=== PATIENT | female | born 1960 | race Caucasian/White ===

== ENCOUNTER → 2020-11-08 11:28 | Outpatient (REF) | payer BC, SELFPAY | LOC: ANHLAB 11:28 | PROVIDERS: PCP Internal Medicine; Visit Provider Nurse Practitioner | DX: L90.5 Scar conditions and fibrosis of skin (principal) | CPT/HCPCS: 88305 ==

== ENCOUNTER → 2022-02-21 11:43 | Outpatient (CLI) | payer BC, SELFPAY ==
--- NOTE | ~2022-02-21 | US_ITS ---
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 No associ ated vascularity or posterior features. Impression: 1: Probable benign right axillary mass measuring 2.5 cm greatest dimension. Recommend follow-up ultra sound in 6 months to assess stability. Reviewed, dictated and finalized at location B. Impression: 1: Probable benign right axillary mass measuring 2.5 cm greatest dimension. Rec ommend follow-up ultrasound in 6 months to assess stability.
== END ==
PROVIDERS: PCP Physician Assistant Medical; Visit Provider Nurse Practitioner
DX: R22.9 Localized swelling, mass and lump, unspecified (principal)
CPT/HCPCS: 76882

== ENCOUNTER 2022-05-22 09:00 | Outpatient (NON) | payer BC, SELFPAY | END 2022-05-22 09:01 | disposition home or self-care (01) | LOC: ANHLAB 05-23 10:32 | PROVIDERS: PCP Physician Assistant Medical; Visit Provider Nurse Practitioner | DX: D22.5 Melanocytic nevi of trunk (principal); D17.39 Benign lipomatous neoplasm of skin and subcutaneous tissue of other sites | CPT/HCPCS: 88304; 88305 ==

== ENCOUNTER 2023-03-05 07:00 | Outpatient (NON) | payer BC, SELFPAY | END 2023-03-05 07:01 | disposition home or self-care (01) | LOC: ANHLAB 03-06 13:10 | PROVIDERS: PCP Physician Assistant Medical; Visit Provider Nurse Practitioner | DX: D22.5 Melanocytic nevi of trunk (principal); D23.5 Other benign neoplasm of skin of trunk | CPT/HCPCS: 88305 ==

== ENCOUNTER 2025-01-29 14:48 | Outpatient (CLI) | payer BC, SELFPAY ==
--- NOTE | ~2025-01-29 | DEXA_ITS ---
Bone Density Report Name: LAUREN PUCKETT Age: 64 Sex: Female Ethnicity: White Date of : 1960 Indication: postmenopausal; screening for osteoporosis; parental hip fracture; height loss; cancer; hysterectomy; Referring Provider: Danyelle Mojica Study: Bone densitometry was performed. Exam Date: January 29, 2025 Accession number: [id number] Bone Density: Region BMD T-score Z-score Classification AP Spine(L1-L4) 0.936 -1.0 0.6 Normal Femoral Neck (Left) 0.593 -2.3 -0.9 Osteopenia Total Hip (Left) 0.728 -1.8 -0.7 Osteopenia Femoral Neck (Right) 0.631 -2.0 -0.6 Osteopenia Total Hip (Right) 0.744 -1.6 -0.6 Osteopenia Total Hip Mean 0.736 -1.7 -0.7 Osteopenia World Health Organization criteria for BMD impression classify patients as: Normal (T-score at or above -1.0), Osteopenia (T-score between -1.0 and -2.5), or Osteoporosis (T-score at or below -2.5). 10-year Fracture Risk: FRAX not reported because: Treated for osteoporosis Clinical Information Provided by Patient: Parent has had a hip fracture Is being treated for osteoporosis Has used the following medications: Fosamax (i.e. alendronate), Vitamin D, Calcium Has the following medical conditions: Cancer, Hysterectomy, melanoma in situ Patient maximum height was 64 Menopause Age: 54 Drinks caffeinated beverages Onset of menses at age 14 Number of children 1 Impression: The patient has low bone mass, based on the Left Femoral Neck T-score. The patient has risk factors, including: parental hip fracture. Discussion: It is important to ask patients whether they are taking their medications and to encourage continued and appropriate compliance with their osteoporosis therapies to reduce fracture risk. It is also important to review their risk factors and encourage appropriate calcium and vitamin D intakes, exercise, fall prevention and other lifestyle measures. Follow-Up: Consider a repeat BMD and Vertebral Fracture Assessment (VFA) exam in 2 years or sooner if medically necessary, to reassess this patient's status. Reported by: KELTON on 01/29/2025 3:08:00 PM. Reviewed, dictated and finalized at location A.
== END 2025-01-29 14:49 | disposition home or self-care (01) ==
LOC: MICIMG 14:50
PROVIDERS: PCP Nurse Practitioner Family; Visit Provider Nurse Practitioner Family
DX: Z78.0 Asymptomatic menopausal state (principal); M85.852 Other specified disorders of bone density and structure, left thigh; M85.851 Other specified disorders of bone density and structure, right thigh
CPT/HCPCS: 77080